=== PATIENT | female | born 2000 | race Caucasian/White ===

== ENCOUNTER 2019-02-14 01:40 | Emergency (ER) | payer BC ==
[~2019-02-14] VITALS: Ht 160 cm; Wt 40.8 kg
[2019-02-14 02:38] LABS: Urine Amorphous Crystal FEW /hpf (None Seen); Urine Bacteria FEW /hpf (None Seen); Urine Blood Negative /uL (Negative); Urine Hyaline Cast FEW /lpf (0 - 2); Urine Specific Gravity 1.006 (1.001-1.035); Urine WBC 6 /hpf (0 - 5)
[2019-02-14 02:39] LABS: Basophils # (auto) 0.1 uL; Basophils % (auto) 0.4 % (0.0-2.0); Eosinophils # (auto) 0.4 uL; Hematocrit 40.1 % (36.0-46.0); Hemoglobin 13.1 g/dL (12.2-16.2); Lymphocytes # (auto) 2.3 uL; Mean Corpuscular Hemoglobin 30.7 pg (28.0-32.0); Mean Corpuscular Hgb Conc. 32.6 g/dL (32.0-36.0); Mean Corpuscular Volume 94.2 fL (80.0-100.0); Monocytes % (auto) 5.9 % (0.0-12.0); Neutrophils # (auto) 14.1 uL; Neutrophils % (auto) 78.7 % (37.0-80.0); Nucleated Red Blood Cells % 0.1 %; Platelet Count (auto) 350 10^3/uL (140-450); Red Blood Cells 4.26 10^6/uL (4.0-5.20); Red Cell Distribution Width 13.4 % (11.8-14.3); White Blood Cell 17.9 10^3/uL (4.4-10.8)
[2019-02-14 02:49] LABS: Alcohol, Urine < 3.0 mg/dL (0-5); Amphetamine Screen, Urine POSITIVE (NEGATIVE); Barbiturate Scree,Urine NEGATIVE (NEGATIVE); Benzodiazephine Screen, Urine POSITIVE (NEGATIVE); Cannabinoid Screen, Urine NEGATIVE (NEGATIVE); Cocaine Screen, Urine NEGATIVE (NEGATIVE); Opiate Scree,Urine NEGATIVE (NEGATIVE); Phencyclidine Screen, Urine NEGATIVE (NEGATIVE)
[2019-02-14 02:57] LABS: Alanine Aminotransferase 67 U/L (13-56); Albumin 3.4 g/dL (3.4-5.0); Anion Gap 6 (5-15); Aspartate Aminotransferase 95 U/L (15-37); BUN/Creatinine Ratio 11.3; Blood Alcohol < 3.0 mg/dL (0-5); Blood Urea Nitrogen 9 mg/dL (7-18); Calcium 8.5 mg/dL (8.5-10.1); Carbon Dioxide 28 mmol/L (21-32); Chloride 103 mmol/L (98-107); GFR African American 118 mL/min; GFR Non-African American 97 mL/min; Glucose 166 mg/dL (74-106); Potassium 4.7 mmol/L (3.5-5.1); Sodium 137 mmol/L (136-145)
[2019-02-14 03:00] LABS: Alkaline Phosphatase 95 U/L (45-117); Bilirubin, Total 0.2 mg/dL (0.2-1.0); Total Protein 7.6 g/dL (6.4-8.2)
[2019-02-14] MEDS ORDERED: SODIUM CHLORIDE 0.9% 1,000 ML IV ONE ×2 (07:10)
[2019-02-14] MEDS ORDERED: LORazepam 2MG/ML-1ML VIAL IV ONE (07:15)
[2019-02-14 09:25] VITALS: BP 131/89
== END 2019-02-14 09:43 | disposition home or self-care (01) ==
LOC: EDBD 01:40 → ER 01:45
DX: F90.9 Attention-deficit hyperactivity disorder, unspecified type (principal); F41.9 Anxiety disorder, unspecified; R55 Syncope and collapse
CPT/HCPCS: 36415; 80053; 80307; 80320; 81001; 85025; 93005; 96360; 99284; J7030

== ENCOUNTER 2022-03-29 12:19 | Inpatient (IN) | payer BC ==
[~2022-03-29] VITALS: Ht 157.5 cm; Wt 72.9 kg
[2022-03-29] MEDS ORDERED: VANCOMYCIN 1GM/250ML 250 ML IV ONE ×2 (14:15→23:30)
[2022-03-29 14:48] LABS: Basophils # (auto) 0.1 10 ^3/uL (0-0.2); Basophils % (auto) 0.6 % (0.0-2.0); Eosinophils # (auto) 0.1 10 ^3/uL (0-0.8); Eosinophils % (auto) 0.7 % (0.0-7.0); Hematocrit 39.5 % (36.0-46.0); Hemoglobin 12.8 g/dL (12.2-16.2); Lymphocytes # (auto) 1.5 10 ^3/uL (0.4-5.4); Lymphocytes % (auto) 11.5 % (10.0-50.0); Mean Corpuscular Hemoglobin 27.6 pg (28.0-32.0); Mean Corpuscular Hgb Conc. 32.3 g/dL (32.0-36.0); Mean Corpuscular Volume 85.4 fL (80.0-100.0); Monocytes # (auto) 0.5 10 ^3/uL (0-1.3); Monocytes % (auto) 4.1 % (0.0-12.0); Neutrophils # (auto) 11.1 10 ^3/uL (1.6-8.6); Neutrophils % (auto) 83.1 % (37.0-80.0); Nucleated Red Blood Cells % 0.1 %; Red Blood Cells 4.63 10^6/uL (4.0-5.20); Red Cell Distribution Width 13.9 % (11.8-14.3); White Blood Cell 13.3 10^3/uL (4.4-10.8)
[2022-03-29 15:08] LABS: Albumin 2.8 g/dL (3.4-5.0); BUN/Creatinine Ratio 21.7; Calcium 8.4 mg/dL (8.5-10.1); Potassium 4.5 mmol/L (3.5-5.1)
[2022-03-29 15:10] LABS: Bilirubin, Total 0.2 mg/dL (0.2-1.0); Total Protein 6.2 g/dL (6.4-8.2)
[2022-03-29] MEDS ORDERED: IOHEXOL 300 MG/ML 100ML BOTTLE IJ ONE (15:36)
[2022-03-29] MEDS ORDERED: HYDROcodone-ACET 5/325MG TAB PO ONE (15:45)
[2022-03-29] MEDS ORDERED: cefTRIAXone 1GM/50ML D5W 50 ML IV ONE (17:30)
[2022-03-29] MEDS ORDERED: DOCUSATE SOD 100 MG CAP PO PRN (17:30)
[2022-03-29] MEDS ORDERED: ACETAMINOPHEN 325 MG TAB PO PRN (17:30)
[2022-03-29] MEDS ORDERED: VANCOMYCIN PER PHARMACY 0 MG IV SCH (17:30)
[2022-03-29] MEDS: SODIUM CHLORIDE 0.9% 1,000 ML IV SCH (18:28)
[2022-03-29] MEDS: HYDROcodone-ACET 5/325MG TAB PO PRN (20:13)
[2022-03-30] MEDS: HYDROcodone-ACET 5/325MG TAB PO PRN ×4 (01:43→16:30)
[2022-03-30] MEDS: SODIUM CHLORIDE 0.9% 1,000 ML IV SCH ×3 (02:37→23:40)
[2022-03-30] MEDS: ONDANSETRON HCL 4 MG/2 ML VIAL IV PRN ×2 (04:19→09:08)
[2022-03-30] MEDS: MORPHINE SULFATE INJ 2 MG/ml SYRG IV PRN ×5 (04:24→22:51)
[2022-03-30 07:16] LABS: Basophils # (auto) 0.1 10 ^3/uL (0-0.2); Basophils % (auto) 0.5 % (0.0-2.0); Eosinophils # (auto) 0.2 10 ^3/uL (0-0.8); Hemoglobin 12.3 g/dL (12.2-16.2); Mean Corpuscular Hemoglobin 27.5 pg (28.0-32.0); Mean Corpuscular Hgb Conc. 32.4 g/dL (32.0-36.0); Mean Corpuscular Volume 84.9 fL (80.0-100.0); Monocytes # (auto) 0.7 10 ^3/uL (0-1.3); Monocytes % (auto) 6.1 % (0.0-12.0); Neutrophils # (auto) 7.5 10 ^3/uL (1.6-8.6); Neutrophils % (auto) 65.4 % (37.0-80.0); Nucleated Red Blood Cells % 0.2 %; Red Blood Cells 4.48 10^6/uL (4.0-5.20); Red Cell Distribution Width 13.7 % (11.8-14.3); White Blood Cell 11.5 10^3/uL (4.4-10.8)
[2022-03-30 07:19] LABS: Potassium 4.3 mmol/L (3.5-5.1)
[2022-03-30 07:28] LABS: Albumin 2.7 g/dL (3.4-5.0); BUN/Creatinine Ratio 15.6; Bilirubin, Total 0.1 mg/dL (0.2-1.0); Calcium 8.6 mg/dL (8.5-10.1); Total Protein 5.8 g/dL (6.4-8.2)
[2022-03-30] MEDS: cefTRIAXone 1GM/50ML D5W 50 ML IV SCH (09:16)
[2022-03-30] MEDS ORDERED: VANCOMYCIN 1GM/250ML 250 ML IV ONE ×2 (10:00→10:45)
[2022-03-30] MEDS ORDERED: METHADONE HCL 10 MG TAB PO SCH (10:00)
[2022-03-30] MEDS ORDERED: VANCOMYCIN 1GM/250ML 250 ML IV SCH (10:45)
[2022-03-30] MEDS: VANCOMYCIN 1GM/250ML 250 ML IV SCH ×2 (11:13→18:58)
[2022-03-30] MEDS: PANTOPRAZOLE 40 MG/10 ML VIAL INJ IV SCH (11:14)
[2022-03-30 11:27] LABS: Alcohol, Urine < 3.0 mg/dL (0-10); Barbiturate Scree,Urine NEGATIVE (NEGATIVE); Benzodiazephine Screen, Urine POSITIVE (NEGATIVE); Cocaine Screen, Urine NEGATIVE (NEGATIVE); Opiate Scree,Urine POSITIVE (NEGATIVE); Phencyclidine Screen, Urine NEGATIVE (NEGATIVE)
[2022-03-30 11:35] LABS: Amphetamine Screen, Urine POSITIVE (NEGATIVE); Cannabinoid Screen, Urine POSITIVE (NEGATIVE)
[2022-03-30] MEDS ORDERED: ALPR1TAB7 PO (21:31)
[2022-03-30 22:00] VITALS: BP 125/79
[2022-03-30] MEDS ORDERED: TEMAZEPAM 15 MG CAP PO ONE (23:15)
[2022-03-31] MEDS: HYDROcodone-ACET 5/325MG TAB PO PRN ×3 (01:12→16:39)
[2022-03-31] MEDS: VANCOMYCIN 1GM/250ML 250 ML IV SCH ×2 (03:07→11:00)
[2022-03-31 05:00] VITALS: BP 113/59
[2022-03-31 06:29] LABS: Basophils # (auto) 0.1 10 ^3/uL (0-0.2); Basophils % (auto) 0.7 % (0.0-2.0); Eosinophils # (auto) 0.4 10 ^3/uL (0-0.8); Eosinophils % (auto) 3.8 % (0.0-7.0); Hematocrit 37.9 % (36.0-46.0); Hemoglobin 12.3 g/dL (12.2-16.2); Lymphocytes # (auto) 3.9 10 ^3/uL (0.4-5.4); Lymphocytes % (auto) 39.1 % (10.0-50.0); Mean Corpuscular Hemoglobin 28.2 pg (28.0-32.0); Mean Corpuscular Hgb Conc. 32.5 g/dL (32.0-36.0); Mean Corpuscular Volume 86.7 fL (80.0-100.0); Monocytes # (auto) 0.7 10 ^3/uL (0-1.3); Monocytes % (auto) 6.9 % (0.0-12.0); Neutrophils # (auto) 4.9 10 ^3/uL (1.6-8.6); Neutrophils % (auto) 49.5 % (37.0-80.0); Nucleated Red Blood Cells % 0.1 %; Red Blood Cells 4.37 10^6/uL (4.0-5.20); Red Cell Distribution Width 13.7 % (11.8-14.3); White Blood Cell 9.9 10^3/uL (4.4-10.8)
[2022-03-31 09:00] VITALS: BP 108/65
[2022-03-31] MEDS: PANTOPRAZOLE 40 MG/10 ML VIAL INJ IV SCH (09:02)
[2022-03-31] MEDS: cefTRIAXone 1GM/50ML D5W 50 ML IV SCH (09:02)
[2022-03-31] MEDS: MORPHINE SULFATE INJ 2 MG/ml SYRG IV PRN ×4 (09:03→23:00)
[2022-03-31] MEDS: SODIUM CHLORIDE 0.9% 1,000 ML IV SCH ×2 (09:12→21:00)
[2022-03-31 12:49] VITALS: BP 129/89
[2022-03-31 17:01] VITALS: BP 132/92
[2022-03-31 22:00] VITALS: BP 124/98
[2022-03-31] MEDS ORDERED: TEMAZEPAM 15 MG CAP PO ONE (22:00)
[2022-04-01 04:59] VITALS: BP 106/70
[2022-04-01 05:36] LABS: Basophils # (auto) 0.1 10 ^3/uL (0-0.2); Eosinophils # (auto) 0.3 10 ^3/uL (0-0.8); Eosinophils % (auto) 2.8 % (0.0-7.0); Mean Corpuscular Volume 84.8 fL (80.0-100.0); Monocytes # (auto) 0.5 10 ^3/uL (0-1.3)
[2022-04-01 05:37] LABS: Albumin 2.7 g/dL (3.4-5.0); Calcium 8.8 mg/dL (8.5-10.1)
[2022-04-01] MEDS: SODIUM CHLORIDE 0.9% 1,000 ML IV SCH ×2 (05:37→15:39)
[2022-04-01 05:39] LABS: Basophils % (auto) 0.7 % (0.0-2.0); Hematocrit 39.1 % (36.0-46.0); Hemoglobin 12.6 g/dL (12.2-16.2); Lymphocytes # (auto) 5.2 10 ^3/uL (0.4-5.4); Lymphocytes % (auto) 54.5 % (10.0-50.0); Mean Corpuscular Hemoglobin 27.4 pg (28.0-32.0); Mean Corpuscular Hgb Conc. 32.4 g/dL (32.0-36.0); Neutrophils # (auto) 3.5 10 ^3/uL (1.6-8.6); Nucleated Red Blood Cells % 0.3 %; Red Blood Cells 4.61 10^6/uL (4.0-5.20); Red Cell Distribution Width 14.2 % (11.8-14.3); White Blood Cell 9.5 10^3/uL (4.4-10.8)
[2022-04-01 05:40] LABS: Bilirubin, Total 0.1 mg/dL (0.2-1.0)
[2022-04-01 08:03] LABS: INR 1.08 (0.9-1.15); Partial Thromboplastin Time 35.2 sec (24.6-33.4)
[2022-04-01] MEDS: HYDROcodone-ACET 5/325MG TAB PO PRN ×2 (08:34→21:19)
[2022-04-01] MEDS: cefTRIAXone 1GM/50ML D5W 50 ML IV SCH (08:34)
[2022-04-01 09:00] VITALS: BP 128/85
[2022-04-01] MEDS: PANTOPRAZOLE 40 MG/10 ML VIAL INJ IV SCH (10:04)
[2022-04-01] MEDS: METHADONE HCL 10 MG TAB PO SCH (10:05)
[2022-04-01] MEDS: VANCOMYCIN 1GM/250ML 250 ML IV SCH ×2 (12:50→21:30)
[2022-04-01 13:03] VITALS: BP 119/75
[2022-04-01 17:00] VITALS: BP 121/75
[2022-04-01] MEDS: MORPHINE SULFATE INJ 2 MG/ml SYRG IV PRN (18:41)
[2022-04-01 21:55] VITALS: BP 121/78
[2022-04-01] MEDS ORDERED: MELATONIN 5 MG TAB PO ONE (22:00)
[2022-04-02] MEDS: SODIUM CHLORIDE 0.9% 1,000 ML IV SCH ×2 (02:13→21:45)
[2022-04-02 05:00] VITALS: BP 120/74
[2022-04-02] MEDS: cefTRIAXone 1GM/50ML D5W 50 ML IV SCH (08:35)
[2022-04-02] MEDS: MORPHINE SULFATE INJ 2 MG/ml SYRG IV PRN ×3 (08:36→22:22)
[2022-04-02 09:00] VITALS: BP 123/81
[2022-04-02] MEDS: METHADONE HCL 10 MG TAB PO SCH (10:00)
[2022-04-02] MEDS: PANTOPRAZOLE 40 MG/10 ML VIAL INJ IV SCH (10:00)
[2022-04-02] MEDS ORDERED: MEPERIDINE HCL (25 MG/ML) 1ML VIAL ONE (11:12)
[2022-04-02] MEDS ORDERED: fentaNYL CITRATE 100 MCG/2 ML VL ONE (11:12)
[2022-04-02] MEDS ORDERED: PROPOFOL 10 MG/ML 20 ML IV ONE (11:12)
[2022-04-02] MEDS ORDERED: DexAMETHasone SOD PHOS 10MG/1ML VIAL INJ ONE (11:12)
[2022-04-02] MEDS ORDERED: ONDANSETRON HCL 4 MG/2 ML VIAL ONE (11:12)
[2022-04-02] MEDS ORDERED: SODIUM CHLORIDE LOCK 10 ML ONE (11:12)
[2022-04-02] MEDS ORDERED: MIDAZOLAM HCL 2MG/2ML 2ml VIAL (1mg/ml) ONE ×2 (11:12→13:07)
[2022-04-02] MEDS ORDERED: KETAMINE HCL 10 ML ONE (11:12)
[2022-04-02] MEDS ORDERED: METOCLOPRAMIDE HCL 5MG/ml INJ 2ml VIAL IV PRN (11:45)
[2022-04-02] MEDS ORDERED: MORPHINE SULFATE INJ 2 MG/ml SYRG IV PRN (11:45)
[2022-04-02] MEDS ORDERED: HYDROmorphone HCL 2 MG/ML VL/or syr IV PRN ×2 (11:45)
[2022-04-02] MEDS ORDERED: ceFAZolin 1GM/50ML 100 ML IV ONE (11:48)
[2022-04-02] MEDS ORDERED: ceFAZolin 1GM VL ONE (12:19)
[2022-04-02 13:00] VITALS: BP 125/85
[2022-04-02] MEDS ORDERED: MIDAZOLAM HCL 2MG/2ML 2ml VIAL (1mg/ml) IV ONE ×2 (13:09→13:15)
[2022-04-02] MEDS ORDERED: HYDROmorphone HCL 2 MG/ML VL/or syr IV ONE ×3 (13:13→13:33)
[2022-04-02 17:00] VITALS: BP 104/52
[2022-04-02 22:00] VITALS: BP 127/85
[2022-04-02] MEDS: ceFAZolin 2 GM in D5W 5% 100 ML IV SCH (22:43)
[2022-04-03 05:00] VITALS: BP 122/75
[2022-04-03] MEDS: ceFAZolin 2 GM in D5W 5% 100 ML IV SCH ×2 (06:59→14:31)
[2022-04-03] MEDS: SODIUM CHLORIDE 0.9% 1,000 ML IV SCH (07:45)
[2022-04-03 09:00] VITALS: BP 126/76
[2022-04-03] MEDS: PANTOPRAZOLE 40 MG/10 ML VIAL INJ IV SCH (09:07)
[2022-04-03] MEDS: MORPHINE SULFATE INJ 2 MG/ml SYRG IV PRN ×2 (09:08→17:02)
[2022-04-03] MEDS: METHADONE HCL 10 MG TAB PO SCH (09:10)
[2022-04-03] MEDS ORDERED: AMOX500T86 PO (12:37)
[2022-04-03 13:00] VITALS: BP 135/77
[2022-04-03] MEDS: HYDROcodone-ACET 5/325MG TAB PO PRN (14:31)
[2022-04-03 16:57] VITALS: BP 133/80
[2022-04-03 17:54] VITALS: BP 114/68
== END 2022-04-03 18:45 | disposition home health service (06) | DRG 603 ==
LOC: EDBD 12:19 → ER 12:19 → OVERFLOW 17:32 → WEST WING 03-30 18:15
PROVIDERS: ADMIT Nurse Practitioner Family; ATTEND Hospitalist
PROC: 0HD5XZZ Extraction of Chest Skin, External Approach (ICD-10-PCS; principal; 2022-04-02 11:57)
DX: L03.313 Cellulitis of chest wall (principal); N61.1 Abscess of the breast and nipple; N64.4 Mastodynia; F19.90 Other psychoactive substance use, unspecified, uncomplicated; Z20.822 Contact with and (suspected) exposure to COVID-19; B95.61 Methicillin susceptible Staphylococcus aureus infection as the cause of diseases classified elsewhere; F32.A Depression, unspecified; Z82.49 Family history of ischemic heart disease and other diseases of the circulatory system; Z80.3 Family history of malignant neoplasm of breast
CPT/HCPCS: 36415; 71260; 76642; 80053; 80202; 80307; 81025; 82565; 82575; 83036; 83605; 85025; 85610; 85730; 86850; 86900; 86901; 87077; 87186; 87205; 87426; 93005; 96365; 96367; C9113; G0378; J0690; J0696; J1100; J2250; J2405; J2704; J7060